=== PATIENT | male | born 1985 | race Two or more races ===

== ENCOUNTER 2022-12-09 17:50 | Emergency (ER) | payer MEDICAID, OTHER ==
[~2022-12-09] VITALS: Ht 162.6 cm; Wt 95.5 kg
[2022-12-09 18:30] VITALS: BP 118/76
[2022-12-09] MEDS ORDERED: TETANUS-DIPTH-ACEL PERTUSSIS 0.5ML SYR Tdap IM ONE (18:45)
== END 2022-12-09 18:54 | disposition home or self-care (01) ==
LOC: ER 17:50
DX: S01.112A Laceration without foreign body of left eyelid and periocular area, initial encounter (principal); W22.8XXA Striking against or struck by other objects, initial encounter; Y93.89 Activity, other specified; Y92.89 Other specified places as the place of occurrence of the external cause; Y99.8 Other external cause status
CPT/HCPCS: 12011; 90471; 90715